=== PATIENT | female | born 1965 | race Caucasian/White ===

== ENCOUNTER 2016-12-29 12:47 | Emergency (ER) | payer SELFPAY ==
[~2016-12-29] VITALS: Ht 162.6 cm; Wt 66.7 kg
[2016-12-29 13:59] LABS: Basophils # (auto) 0 uL; Basophils % (auto) 0.5 % (0.0-2.0); CONDITION Y; Eosinophils # (auto) 0.3 uL; Eosinophils % (auto) 4.7 % (0.0-7.0); Hematocrit 44.9 % (36.0-46.0); Hemoglobin 14.5 g/dL (12.2-16.2); Lymphocytes % (auto) 27.5 % (10.0-50.0); Mean Corpuscular Hemoglobin 27.5 pg (28.0-32.0); Mean Corpuscular Hgb Conc. 32.3 g/dL (32.0-36.0); Mean Corpuscular Volume 84.9 fL (80.0-100.0); Mean Platelet Volume 9.8 fL (7.4-10.4); Monocytes # (auto) 0.4 uL; Monocytes % (auto) 5.6 % (0.0-12.0); Neutrophils # (auto) 4.5 uL; Neutrophils % (auto) 61.7 % (37.0-80.0); Platelet Count (auto) 238 10^3/uL (140-450); Red Cell Distribution Width 14.7 % (11.6-16.0); White Blood Cell 7.3 10^3/uL (4.4-10.8)
[2016-12-29 14:16] LABS: Albumin 3.9 g/dL (3.4-5.0); Anion Gap 9 (5-15); Blood Urea Nitrogen 16 mg/dL (7-18); Calcium 8.9 mg/dL (8.5-10.1); Carbon Dioxide 24 mmol/L (21-32); Chloride 110 mmol/L (98-107); Potassium 3.7 mmol/L (3.5-5.1); Sodium 143 mmol/L (136-145)
[2016-12-29 14:22] LABS: Alkaline Phosphatase 64 U/L (45-117); Aspartate Aminotransferase 13 U/L (15-37); BUN/Creatinine Ratio 27.6; Bilirubin, Total 0.3 mg/dL (0.2-1.0); GFR African American 142 mL/min; GFR Non-African American 117 mL/min; Glucose 103 mg/dL (74-106); Total Protein 7.5 g/dL (6.4-8.2)
[2016-12-29] MEDS ORDERED: SODIUM CHLORIDE 0.9% 1,000 ML IV ONE (16:14)
[2016-12-29] MEDS ORDERED: METOCLOPRAMIDE HCL 5MG/ml INJ 2ml VIAL IV ONE (16:15)
[2016-12-29] MEDS ORDERED: KETOROLAC TROMETH 30 MG/ML 1ML VIAL IV ONE (16:15)
[2016-12-29 16:43] LABS: Magnesium 2.4 mg/dL (1.6-2.6)
[2016-12-29 17:40] VITALS: BP 129/90
[2016-12-29 17:51] LABS: Urine Bilirubin Negative (Negative); Urine Blood Negative /uL (Negative); Urine Color Yellow (Yellow); Urine Glucose Normal (Normal); Urine Ketone Negative (Negative); Urine Nitrite Negative (Negative); Urine RBC 1 /hpf (0 - 4); Urine Squamous Epithelial Cell FEW /hpf (<5); Urine Urobilinogen Normal (Negative); Urine pH 6.5 (5.0-8.0)
== END 2016-12-29 18:18 | disposition home or self-care (01) ==
LOC: ER 12:47
DX: R10.11 Right upper quadrant pain (principal); R11.0 Nausea; E78.5 Hyperlipidemia, unspecified; G43.909 Migraine, unspecified, not intractable, without status migrainosus; K59.00 Constipation, unspecified; Z88.1 Allergy status to other antibiotic agents; Z90.710 Acquired absence of both cervix and uterus
CPT/HCPCS: 36415; 71020; 76705; 80053; 81001; 83690; 83735; 84443; 84484; 85025; 93005; 96361; 96374; 96375; 99285; J1885; J2765; J7030

== ENCOUNTER 2018-02-06 12:28 | Emergency (ER) | payer MEDICAID ==
[~2018-02-06] VITALS: Ht 152.4 cm; Wt 63.5 kg
[2018-02-06 13:10] VITALS: BP 142/88
[2018-02-06] MEDS ORDERED: ASPirin 81 mg TAB PO ONE (13:15)
[2018-02-06 13:45] LABS: Basophils # (auto) 0 uL; Basophils % (auto) 0.4 % (0.0-2.0); Eosinophils # (auto) 0.1 uL; Eosinophils % (auto) 1.9 % (0.0-7.0); Hematocrit 39.6 % (36.0-46.0); Lymphocytes # (auto) 1.9 uL; Lymphocytes % (auto) 26.1 % (10.0-50.0); Mean Corpuscular Hemoglobin 27.5 pg (28.0-32.0); Mean Corpuscular Hgb Conc. 32.8 g/dL (32.0-36.0); Mean Corpuscular Volume 83.8 fL (80.0-100.0); Monocytes # (auto) 0.4 uL; Monocytes % (auto) 5.5 % (0.0-12.0); Neutrophils # (auto) 4.8 uL; Neutrophils % (auto) 66.1 % (37.0-80.0); Nucleated Red Blood Cells % 0.2 %; Platelet Count (auto) 234 10^3/uL (140-450); Red Blood Cells 4.73 10^6/uL (4.0-5.20); Red Cell Distribution Width 14.3 % (11.8-14.3); White Blood Cell 7.3 10^3/uL (4.4-10.8)
[2018-02-06 13:57] LABS: Albumin 3.6 g/dL (3.4-5.0); Anion Gap 7 (5-15); Blood Urea Nitrogen 20 mg/dL (7-18); Carbon Dioxide 26 mmol/L (21-32); Chloride 108 mmol/L (98-107); GFR African American 116 mL/min; GFR Non-African American 96 mL/min; Glucose 95 mg/dL (74-106); Magnesium 2.2 mg/dL (1.6-2.6); Potassium 3.5 mmol/L (3.5-5.1); Sodium 141 mmol/L (136-145)
[2018-02-06 14:08] LABS: Alanine Aminotransferase 20 U/L (13-56); Alkaline Phosphatase 64 U/L (45-117); Aspartate Aminotransferase 14 U/L (15-37); Bilirubin, Total 0.4 mg/dL (0.2-1.0); Total Protein 7.1 g/dL (6.4-8.2)
== END 2018-02-06 14:54 | disposition home or self-care (01) ==
LOC: ER 12:28
DX: R07.89 Other chest pain (principal); E11.9 Type 2 diabetes mellitus without complications; E78.5 Hyperlipidemia, unspecified; Z88.2 Allergy status to sulfonamides
CPT/HCPCS: 36415; 71045; 80053; 83735; 84484; 85025; 85379; 93005; 94761

== ENCOUNTER 2022-02-28 22:02 | Inpatient (IN) | payer MEDICAID ==
[~2022-02-28] VITALS: Ht 160 cm; Wt 66.3 kg
[2022-03-01 00:07] LABS: INR 0.99 (0.9-1.15)
[2022-03-01 00:17] LABS: BUN/Creatinine Ratio 21.9; Potassium 3.1 mmol/L (3.5-5.1)
[2022-03-01 00:21] LABS: Bilirubin, Total 0.3 mg/dL (0.2-1.0); Total Protein 7.3 g/dL (6.4-8.2)
[2022-03-01 01:11] LABS: Basophils # (auto) 0 10 ^3/uL (0-0.2); Basophils % (auto) 0.5 % (0.0-2.0); Eosinophils # (auto) 0.2 10 ^3/uL (0-0.8); Eosinophils % (auto) 2.9 % (0.0-7.0); Hemoglobin 13.1 g/dL (12.2-16.2); Lymphocytes # (auto) 2.4 10 ^3/uL (0.4-5.4); Mean Corpuscular Hgb Conc. 32.7 g/dL (32.0-36.0); Mean Corpuscular Volume 82.5 fL (80.0-100.0); Monocytes # (auto) 0.5 10 ^3/uL (0-1.3); Monocytes % (auto) 6.5 % (0.0-12.0); Neutrophils # (auto) 3.8 10 ^3/uL (1.6-8.6); Neutrophils % (auto) 55.1 % (37.0-80.0); Red Blood Cells 4.85 10^6/uL (4.0-5.20); Red Cell Distribution Width 14.7 % (11.8-14.3); White Blood Cell 6.9 10^3/uL (4.4-10.8)
[2022-03-01] MEDS ORDERED: ONDA-144 PO (04:22)
[2022-03-01] MEDS ORDERED: FAMO20TA10 PO (04:22)
[2022-03-01] MEDS ORDERED: PERCOT PO (04:22)
[2022-03-01] MEDS ORDERED: FAMOTIDINE 20 MG TAB PO ONE (04:30)
[2022-03-01] MEDS ORDERED: CIPROFLOXACIN HCL 500 MG TAB PO ONE (04:30)
[2022-03-01] MEDS: amLODIPine BESYLATE 5 MG TAB PO SCH (10:00)
[2022-03-01] MEDS: SODIUM CHLORIDE 0.9% 1,000 ML IV SCH ×2 (11:00→19:30)
[2022-03-01] MEDS ORDERED: POTASSIUM CHL 20 Meq TABLET PO ONE (11:00)
[2022-03-01 16:17] LABS: Magnesium 2.3 mg/dL (1.6-2.6); Phosphorus 3.4 mg/dL (2.5-4.90)
[2022-03-01] MEDS: MORPHINE SULFATE INJ 2 MG/ml SYRG IV PRN ×2 (17:53→22:09)
[2022-03-01] MEDS: ONDANSETRON HCL 4 MG/2 ML VIAL IV PRN ×2 (18:02→22:09)
[2022-03-01 21:33] LABS: Urine Bacteria FEW /hpf (None Seen); Urine Blood Negative /uL (Negative); Urine Mucus MODERATE (None Seen); Urine Specific Gravity 1.019 (1.001-1.035); Urine WBC 146 /hpf (0 - 5)
[2022-03-02] MEDS: SODIUM CHLORIDE 0.9% 1,000 ML IV SCH ×3 (03:40→13:25)
[2022-03-02 04:39] LABS: Basophils # (auto) 0 10 ^3/uL (0-0.2); Basophils % (auto) 0.5 % (0.0-2.0); Eosinophils # (auto) 0.3 10 ^3/uL (0-0.8); Eosinophils % (auto) 4.6 % (0.0-7.0); Hematocrit 38.7 % (36.0-46.0); Hemoglobin 12.9 g/dL (12.2-16.2); Lymphocytes # (auto) 2.2 10 ^3/uL (0.4-5.4); Lymphocytes % (auto) 33.6 % (10.0-50.0); Mean Corpuscular Hemoglobin 27.2 pg (28.0-32.0); Mean Corpuscular Hgb Conc. 33.2 g/dL (32.0-36.0); Mean Corpuscular Volume 81.7 fL (80.0-100.0); Monocytes # (auto) 0.4 10 ^3/uL (0-1.3); Monocytes % (auto) 6.5 % (0.0-12.0); Neutrophils # (auto) 3.5 10 ^3/uL (1.6-8.6); Neutrophils % (auto) 54.8 % (37.0-80.0); Red Blood Cells 4.73 10^6/uL (4.0-5.20); Red Cell Distribution Width 14.9 % (11.8-14.3); White Blood Cell 6.5 10^3/uL (4.4-10.8)
[2022-03-02 05:05] LABS: Potassium 3.3 mmol/L (3.5-5.1)
[2022-03-02 05:11] LABS: Albumin 3.6 g/dL (3.4-5.0); BUN/Creatinine Ratio 27.5; Bilirubin, Total 0.4 mg/dL (0.2-1.0); Calcium 8.7 mg/dL (8.5-10.1); Total Protein 6.6 g/dL (6.4-8.2)
[2022-03-02] MEDS: MORPHINE SULFATE INJ 2 MG/ml SYRG IV PRN ×2 (06:47→09:44)
[2022-03-02] MEDS: ONDANSETRON HCL 4 MG/2 ML VIAL IV PRN ×3 (06:47→21:00)
[2022-03-02] MEDS: amLODIPine BESYLATE 5 MG TAB PO SCH (09:44)
[2022-03-02] MEDS: PANTOPRAZOLE 40 MG/10 ML VIAL INJ IV SCH (09:44)
[2022-03-02] MEDS ORDERED: POTASSIUM CHL 20 Meq TABLET PO ONE (12:45)
[2022-03-02 13:00] VITALS: BP 160/88
[2022-03-02] MEDS ORDERED: POLYETHYLENE GLYCOL 17 GM PWDR PO ONE (13:45)
[2022-03-02] MEDS ORDERED: SUCR1TAB PO (14:50)
[2022-03-02] MEDS ORDERED: DICL1GEL50 TOP (14:50)
[2022-03-02] MEDS ORDERED: [UNRECOGNIZED DRUG - CODE] (14:50)
[2022-03-02] MEDS ORDERED: TOPI50TA53 PO (14:50)
[2022-03-02] MEDS ORDERED: HYDR1SOL36 (14:50)
[2022-03-02] MEDS ORDERED: LIDO1.8P TOP (14:50)
[2022-03-02] MEDS ORDERED: PANT40T PO (14:50)
[2022-03-02] MEDS ORDERED: ATOR40TA52 PO (14:50)
[2022-03-02] MEDS ORDERED: CITA-77 PO (14:50)
[2022-03-02] MEDS ORDERED: SUMA100T15 PO (14:50)
[2022-03-02 17:00] VITALS: BP 157/102
[2022-03-02] MEDS ORDERED: cefTRIAXone 1GM/50ML D5W 50 ML IV ONE (17:30)
[2022-03-02 20:00] VITALS: BP 165/97
[2022-03-02 22:00] VITALS: BP 143/87
[2022-03-03] MEDS: SODIUM CHLORIDE 0.9% 1,000 ML IV SCH ×3 (04:40→21:20)
[2022-03-03 05:00] VITALS: BP 154/96
[2022-03-03 09:00] VITALS: BP 151/96
[2022-03-03] MEDS: cefTRIAXone 1GM/50ML D5W 50 ML IV SCH (09:05)
[2022-03-03] MEDS: PANTOPRAZOLE 40 MG/10 ML VIAL INJ IV SCH (09:05)
[2022-03-03] MEDS: amLODIPine BESYLATE 5 MG TAB PO SCH (09:06)
[2022-03-03] MEDS: HYDROcodone-ACET 5/325MG TAB PO PRN ×2 (11:47→18:54)
[2022-03-03 13:00] VITALS: BP 153/95
[2022-03-03] MEDS: ONDANSETRON HCL 4 MG/2 ML VIAL IV PRN (13:52)
[2022-03-03] MEDS ORDERED: PHYSOSTIGMINE 1 MG/ML IV ONE (14:30)
[2022-03-03 16:47] VITALS: BP 148/93
[2022-03-03] MEDS: POLYETHYLENE GLYCOL 17 GM PWDR PO PRN (20:55)
[2022-03-03 22:00] VITALS: BP 160/80
[2022-03-03 23:45] VITALS: BP 153/86
[2022-03-04 02:56] LABS: INR 1.03 (0.9-1.15); Partial Thromboplastin Time 24.8 sec (24.6-33.4)
[2022-03-04 05:00] VITALS: BP 160/81
[2022-03-04] MEDS: SODIUM CHLORIDE 0.9% 1,000 ML IV SCH ×3 (06:37→21:00)
[2022-03-04] MEDS: cefTRIAXone 1GM/50ML D5W 50 ML IV SCH (08:51)
[2022-03-04] MEDS: amLODIPine BESYLATE 5 MG TAB PO SCH (08:52)
[2022-03-04] MEDS: PANTOPRAZOLE 40 MG/10 ML VIAL INJ IV SCH (08:52)
[2022-03-04 09:00] VITALS: BP 136/92
[2022-03-04] MEDS: HYDROcodone-ACET 5/325MG TAB PO PRN ×2 (09:08→19:55)
[2022-03-04 13:00] VITALS: BP 140/90
[2022-03-04 17:00] VITALS: BP 123/90
[2022-03-04] MEDS: ONDANSETRON HCL 4 MG/2 ML VIAL IV PRN (18:46)
[2022-03-04 21:46] VITALS: BP 146/88
[2022-03-04] MEDS ORDERED: METOCLOPRAMIDE HCL 10 MG TAB PO SCH (22:00)
[2022-03-04] MEDS ORDERED: VALPROATE INJ 1,000 MG in D5W 5% 50 ML IV SCH (22:00)
[2022-03-05] MEDS: ONDANSETRON HCL 4 MG/2 ML VIAL IV PRN (00:06)
[2022-03-05] MEDS: HYDROcodone-ACET 5/325MG TAB PO PRN ×4 (00:06→21:50)
[2022-03-05 04:30] VITALS: BP 149/96
[2022-03-05] MEDS: SODIUM CHLORIDE 0.9% 1,000 ML IV SCH ×2 (06:38→13:00)
[2022-03-05] MEDS ORDERED: LIDOCAINE VISCOUS 2% 15ML UD ONE (07:13)
[2022-03-05] MEDS ORDERED: SODIUM CHLORIDE LOCK 10 ML ONE (07:13)
[2022-03-05 08:00] VITALS: BP 131/86
[2022-03-05] MEDS: POLYETHYLENE GLYCOL 17 GM PWDR PO PRN (08:12)
[2022-03-05] MEDS: cefTRIAXone 1GM/50ML D5W 50 ML IV SCH (08:12)
[2022-03-05] MEDS ORDERED: PANTOPRAZOLE 40 MG TAB PO SCH (10:00)
[2022-03-05] MEDS: MIDAZOLAM HCL 5 MG/ML-1ML VIAL ONE ×2 (10:12→10:15)
[2022-03-05] MEDS: diphenhdrAMINE HCL 50 MG/1 ML VL ONE ×2 (10:12→10:13)
[2022-03-05] MEDS: fentaNYL CITRATE 100 MCG/2 ML VL ONE ×2 (10:12→10:15)
[2022-03-05] MEDS: amLODIPine BESYLATE 5 MG TAB PO SCH (11:06)
[2022-03-05] MEDS: SUCRALFATE 1 GM/10 ML ORAL SUSP PO SCH ×3 (11:06→21:50)
[2022-03-05 12:00] VITALS: BP 149/94
[2022-03-05 16:00] VITALS: BP 140/87
[2022-03-05 22:00] VITALS: BP 150/91
[2022-03-06] MEDS: METOCLOPRAMIDE HCL 10 MG TAB PO SCH ×2 (00:01→06:54)
[2022-03-06] MEDS: SODIUM CHLORIDE 0.9% 1,000 ML IV SCH ×2 (00:01→04:07)
[2022-03-06 05:00] VITALS: BP 117/82
[2022-03-06] MEDS: SUCRALFATE 1 GM/10 ML ORAL SUSP PO SCH ×2 (06:54→10:58)
[2022-03-06] MEDS: HYDROcodone-ACET 5/325MG TAB PO PRN (06:54)
[2022-03-06] MEDS: PANTOPRAZOLE 40 MG/10 ML VIAL INJ IV SCH ×2 (08:31)
[2022-03-06] MEDS: cefTRIAXone 1GM/50ML D5W 50 ML IV SCH (08:31)
[2022-03-06] MEDS: amLODIPine BESYLATE 5 MG TAB PO SCH (08:34)
[2022-03-06 09:00] VITALS: BP 133/89
[2022-03-06] MEDS ORDERED: QULIPTA 60 MG PO SCH (10:00)
[2022-03-06] MEDS ORDERED: SUCR1TAB PO (10:41)
[2022-03-06] MEDS ORDERED: AML5T PO (10:42)
[2022-03-06] MEDS ORDERED: PANT40TA2 PO (10:42)
[2022-03-06 11:50] VITALS: BP 117/82
== END 2022-03-06 12:59 | disposition home or self-care (01) | DRG 241 ==
LOC: ER 22:02 → EDBD 22:02 → OVERFLOW 03-01 10:51 → CENTRAL 03-02 13:03
PROVIDERS: ADMIT Nurse Practitioner Family; ATTEND Internal Medicine
PROC: 0DB68ZX Excision of Stomach, Via Natural or Artificial Opening Endoscopic, Diagnostic (ICD-10-PCS; principal; 2022-03-05 10:05)
DX: K29.70 Gastritis, unspecified, without bleeding (principal); K26.9 Duodenal ulcer, unspecified as acute or chronic, without hemorrhage or perforation; E11.51 Type 2 diabetes mellitus with diabetic peripheral angiopathy without gangrene; K29.80 Duodenitis without bleeding; K25.9 Gastric ulcer, unspecified as acute or chronic, without hemorrhage or perforation; E86.0 Dehydration; E87.6 Hypokalemia; N20.0 Calculus of kidney; N39.0 Urinary tract infection, site not specified; I10 Essential (primary) hypertension; L98.499 Non-pressure chronic ulcer of skin of other sites with unspecified severity; M54.50 Low back pain, unspecified; E78.5 Hyperlipidemia, unspecified; G43.019 Migraine without aura, intractable, without status migrainosus; M79.2 Neuralgia and neuritis, unspecified; G44.40 Drug-induced headache, not elsewhere classified, not intractable; G89.4 Chronic pain syndrome; K44.9 Diaphragmatic hernia without obstruction or gangrene; Z20.822 Contact with and (suspected) exposure to COVID-19; Z79.899 Other long term (current) drug therapy; Z82.49 Family history of ischemic heart disease and other diseases of the circulatory system; Z88.2 Allergy status to sulfonamides; Z83.3 Family history of diabetes mellitus; Z90.710 Acquired absence of both cervix and uterus; Z98.82 Breast implant status; Z98.891 History of uterine scar from previous surgery; Z87.11 Personal history of peptic ulcer disease
CPT/HCPCS: 36415; 43239; 71045; 74176; 80053; 81001; 83735; 84100; 84484; 85025; 85610; 85730; 86677; 86850; 86900; 86901; 87426; 93005; 96365; 96375; C9113; G0378; J0696; J2250; J2405

== ENCOUNTER 2022-08-15 20:00 | Inpatient (IN) | payer MEDICAID ==
[~2022-08-15] VITALS: Ht 160 cm; Wt 69.8 kg
[~2022-08-15 20:00] MED LIST: AML5T PO; ATOR40TA52 PO; CITA-77 PO; DICL1GEL50 TOP; FAMO20TA10 PO; HYDR1SOL36; LIDO1.8P TOP; ONDA-144 PO; PANT40TA2 PO; SUCR1TAB PO; SUMA100T15 PO; TOPI50TA53 PO
[2022-08-15] MEDS ORDERED: KETOROLAC TROMETH 30 MG/ML 1ML VIAL IV ONE (20:30)
[2022-08-15] MEDS ORDERED: SODIUM CHLORIDE 0.9% 1,000 ML IVB ONE (20:30)
[2022-08-15] MEDS ORDERED: ONDANSETRON HCL 4 MG/2 ML VIAL IV ONE (20:30)
[2022-08-15 21:10] LABS: Urine Amorphous Crystal FEW /hpf (None Seen); Urine Bacteria FEW /hpf (None Seen); Urine Blood Negative /uL (Negative); Urine Specific Gravity 1.011 (1.001-1.035); Urine WBC 4 /hpf (0 - 5)
[2022-08-15 21:36] LABS: Mean Corpuscular Hemoglobin 25.4 pg (28.0-32.0); Monocytes # (auto) 1.2 10 ^3/uL (0-1.3); White Blood Cell 12.7 10^3/uL (4.4-10.8)
[2022-08-15 21:38] LABS: Basophils # (auto) 0 10 ^3/uL (0-0.2); Basophils % (auto) 0.3 % (0.0-2.0); Eosinophils # (auto) 0 10 ^3/uL (0-0.8); Eosinophils % (auto) 0.3 % (0.0-7.0); Hematocrit 37.8 % (36.0-46.0); Lymphocytes # (auto) 1.7 10 ^3/uL (0.4-5.4); Lymphocytes % (auto) 13.4 % (10.0-50.0); Mean Corpuscular Hgb Conc. 31.8 g/dL (32.0-36.0); Mean Corpuscular Volume 79.9 fL (80.0-100.0); Monocytes % (auto) 9.7 % (0.0-12.0); Neutrophils # (auto) 9.7 10 ^3/uL (1.6-8.6); Neutrophils % (auto) 76.3 % (37.0-80.0); Nucleated Red Blood Cells % 0.1 %; Red Blood Cells 4.73 10^6/uL (4.0-5.20); Red Cell Distribution Width 16.1 % (11.8-14.3)
[2022-08-15 21:59] LABS: Albumin 3.8 g/dL (3.4-5.0); Calcium 8.6 mg/dL (8.5-10.1); Potassium 3.1 mmol/L (3.5-5.1)
[2022-08-15 22:03] LABS: BUN/Creatinine Ratio 27.5 (10.0-20.0); Bilirubin, Total 0.2 mg/dL (0.2-1.0); Total Protein 6.9 g/dL (6.4-8.2)
[2022-08-16] MEDS ORDERED: KETOROLAC TROMETH 30 MG/ML 1ML VIAL IV ONE ×2 (04:45→11:30)
[2022-08-16] MEDS ORDERED: SUCR1TAB22 OR (10:18)
[2022-08-16] MEDS ORDERED: CITA10TA8 PO (10:18)
[2022-08-16] MEDS ORDERED: CLOP75TA70 PO (10:18)
[2022-08-16] MEDS ORDERED: SUMA50TA2 PO (10:19)
[2022-08-16] MEDS ORDERED: MORPHINE SULFATE INJ 2 MG/ml SYRG IV PRN (11:45)
[2022-08-16] MEDS ORDERED: POTASSIUM EFFERVESENT TAB 25 MEQ PO ONE (11:45)
[2022-08-16] MEDS: SODIUM CHLORIDE 0.9% 1,000 ML IV SCH ×2 (15:33→21:35)
[2022-08-16] MEDS: SUCRALFATE 1 GM TAB PO SCH ×2 (17:28→21:35)
[2022-08-16] MEDS ORDERED: HYDROcodone-ACET 5/325MG TAB PO ONE (17:30)
[2022-08-16] MEDS ORDERED: MANNITOL 20% SOLN 100 gm/500ml 100 ML IV ONE (17:30)
[2022-08-16] MEDS ORDERED: SODIUM CHLORIDE 0.9% 1,000 ML IV ONE (17:45)
[2022-08-16] MEDS: PANTOPRAZOLE 40 MG TAB PO SCH (21:35)
[2022-08-16] MEDS: TAMSULOSIN HYDROCHLORIDE 0.4 MG CAP PO SCH (21:36)
[2022-08-16 23:48] VITALS: BP 152/85
[2022-08-17] VITALS (7 sets, daily range): BP systolic 110–156; BP diastolic 70–91
[2022-08-17] MEDS: ONDANSETRON HCL 4 MG/2 ML VIAL IV PRN ×3 (00:36→18:43)
[2022-08-17] MEDS: SODIUM CHLORIDE 0.9% 1,000 ML IV SCH ×3 (04:25→12:48)
[2022-08-17] MEDS: SUCRALFATE 1 GM TAB PO SCH ×4 (05:56→22:33)
[2022-08-17 06:07] LABS: Basophils # (auto) 0 10 ^3/uL (0-0.2); Eosinophils # (auto) 0.2 10 ^3/uL (0-0.8); Neutrophils # (auto) 5.7 10 ^3/uL (1.6-8.6); Red Cell Distribution Width 16.4 % (11.8-14.3)
[2022-08-17 06:09] LABS: Basophils % (auto) 0.5 % (0.0-2.0); Eosinophils % (auto) 2.6 % (0.0-7.0); Hematocrit 34.6 % (36.0-46.0); Hemoglobin 11.3 g/dL (12.2-16.2); Lymphocytes # (auto) 1.5 10 ^3/uL (0.4-5.4); Lymphocytes % (auto) 18.8 % (10.0-50.0); Mean Corpuscular Hemoglobin 26.1 pg (28.0-32.0); Mean Corpuscular Hgb Conc. 32.8 g/dL (32.0-36.0); Mean Corpuscular Volume 79.8 fL (80.0-100.0); Monocytes # (auto) 0.7 10 ^3/uL (0-1.3); Monocytes % (auto) 8.3 % (0.0-12.0); Neutrophils % (auto) 69.8 % (37.0-80.0); Nucleated Red Blood Cells % 0.1 %; Red Blood Cells 4.33 10^6/uL (4.0-5.20); White Blood Cell 8.2 10^3/uL (4.4-10.8)
[2022-08-17 06:15] LABS: Albumin 3.2 g/dL (3.4-5.0); Potassium 3.8 mmol/L (3.5-5.1)
[2022-08-17 06:19] LABS: BUN/Creatinine Ratio 22.4 (10.0-20.0); Bilirubin, Total 0.4 mg/dL (0.2-1.0); Calcium 8.7 mg/dL (8.5-10.1); Total Protein 6.2 g/dL (6.4-8.2)
[2022-08-17] MEDS: cefTRIAXone 1GM/50ML D5W 50 ML IV SCH (09:01)
[2022-08-17] MEDS ORDERED: ENOXAPARIN SOD 40 MG/0.4 ML SYRINGE SC SCH (10:00)
[2022-08-17] MEDS ORDERED: CLOPIDOGREL BISULFATE 75 MG TAB PO SCH (10:00)
[2022-08-17] MEDS ORDERED: PATIENTS OWN MEDICATION (Citalopram Hydrobromide (Celexa) 20 MG) PO SCH (10:00)
[2022-08-17] MEDS: CITALOPRAM HYDROBR 20 MG TAB PO SCH (11:41)
[2022-08-17] MEDS: amLODIPine BESYLATE 5 MG TAB PO SCH (11:44)
[2022-08-17] MEDS: ATORVASTATIN 20 MG TAB PO SCH (11:45)
[2022-08-17] MEDS: PANTOPRAZOLE 40 MG TAB PO SCH ×2 (11:46→22:34)
[2022-08-17] MEDS ORDERED: KETOROLAC TROMETH 30 MG/ML 1ML VIAL IV PRN (12:45)
[2022-08-17] MEDS: DOCUSATE SOD 100 MG CAP PO PRN ×2 (16:18→22:35)
[2022-08-17] MEDS: TAMSULOSIN HYDROCHLORIDE 0.4 MG CAP PO SCH (17:43)
[2022-08-17] MEDS ORDERED: SUMAtriptan SUCCINATE 25 MG TAB PO PRN (23:00)
[2022-08-18] VITALS (7 sets, daily range): BP systolic 135–151; BP diastolic 83–90
[2022-08-18] MEDS: SUCRALFATE 1 GM TAB PO SCH ×4 (06:41→21:28)
[2022-08-18] MEDS: SODIUM CHLORIDE 0.9% 1,000 ML IV SCH ×3 (06:41→22:05)
[2022-08-18] MEDS: cefTRIAXone 1GM/50ML D5W 50 ML IV SCH (08:31)
[2022-08-18] MEDS: CITALOPRAM HYDROBR 20 MG TAB PO SCH (09:54)
[2022-08-18] MEDS: ONDANSETRON HCL 4 MG/2 ML VIAL IV PRN ×3 (09:54→21:36)
[2022-08-18] MEDS: PANTOPRAZOLE 40 MG TAB PO SCH ×2 (09:55→21:28)
[2022-08-18] MEDS: amLODIPine BESYLATE 5 MG TAB PO SCH (09:56)
[2022-08-18] MEDS: ATORVASTATIN 20 MG TAB PO SCH (09:56)
[2022-08-18] MEDS: DOCUSATE SOD 100 MG CAP PO PRN (10:00)
[2022-08-18] MEDS ORDERED: SUMAtriptan SUCCINATE 25 MG TAB PO PRN (10:00)
[2022-08-18] MEDS: TAMSULOSIN HYDROCHLORIDE 0.4 MG CAP PO SCH (17:45)
[2022-08-19 05:00] VITALS: BP 141/91
[2022-08-19] MEDS: SUCRALFATE 1 GM TAB PO SCH ×2 (05:51→12:26)
[2022-08-19] MEDS: SODIUM CHLORIDE 0.9% 1,000 ML IV SCH ×2 (06:25→14:38)
[2022-08-19 09:12] VITALS: BP 151/84
[2022-08-19] MEDS: cefTRIAXone 1GM/50ML D5W 50 ML IV SCH (09:51)
[2022-08-19] MEDS: CITALOPRAM HYDROBR 20 MG TAB PO SCH (09:55)
[2022-08-19] MEDS: PANTOPRAZOLE 40 MG TAB PO SCH (09:55)
[2022-08-19] MEDS: amLODIPine BESYLATE 5 MG TAB PO SCH (09:55)
[2022-08-19] MEDS: ATORVASTATIN 20 MG TAB PO SCH (09:55)
[2022-08-19] MEDS ORDERED: LEVO500T31 PO (11:55)
[2022-08-19] MEDS ORDERED: DOCU-94 PO (12:08)
[2022-08-19 12:32] VITALS: BP 143/84
[2022-08-19 14:02] VITALS: BP 151/84
== END 2022-08-19 15:55 | disposition home or self-care (01) | DRG 720 ==
LOC: EDBD 20:00 → ER 20:00 → OVERFLOW 08-16 11:44 → WEST WING 08-16 23:09
PROVIDERS: ADMIT Nurse Practitioner Family; ATTEND Family Medicine
DX: A41.9 Sepsis, unspecified organism (principal); N17.9 Acute kidney failure, unspecified; R16.0 Hepatomegaly, not elsewhere classified; N13.6 Pyonephrosis; D64.9 Anemia, unspecified; E86.0 Dehydration; I10 Essential (primary) hypertension; F32.A Depression, unspecified; E87.6 Hypokalemia; E78.00 Pure hypercholesterolemia, unspecified; Z79.02 Long term (current) use of antithrombotics/antiplatelets; Z82.49 Family history of ischemic heart disease and other diseases of the circulatory system; Z83.3 Family history of diabetes mellitus; Z79.899 Other long term (current) drug therapy; Z87.442 Personal history of urinary calculi; Z87.11 Personal history of peptic ulcer disease; Z88.2 Allergy status to sulfonamides; N10 Acute pyelonephritis
CPT/HCPCS: 36415; 74018; 74176; 76775; 80053; 81001; 83605; 83690; 85025; 87086; 93005; G0378; J0696; J1885; J2405

== ENCOUNTER 2023-09-27 00:52 | Inpatient (IN) | payer MEDICAID ==
[2023-09-27] VITALS (8 sets, daily range): BP systolic 117–140; BP diastolic 72–82; PULSE 69–81; RESP 16–19; TEMP 98.2–98.5; O2SAT 95–100
[~2023-09-27] VITALS: Ht 160 cm; Wt 69.5 kg
[~2023-09-27 00:52] MED LIST changes: +CITA10TA8 PO; +CLOP75TA70 PO; -DICL1GEL50 TOP; +DOCU-94 PO; +LEVO500T31 PO; -LIDO1.8P TOP; +SUCR1TAB31 OR; +SUMA50TA2 PO
[2023-09-27 01:27] LABS: Urine Bacteria None Seen /hpf (None Seen)
[2023-09-27 01:31] LABS: Basophils # (auto) 0 10 ^3/uL (0-0.2); Eosinophils # (auto) 0.1 10 ^3/uL (0-0.8); Hemoglobin 11.2 g/dL (12.2-16.2); Lymphocytes # (auto) 1.4 10 ^3/uL (0.4-5.4); Mean Corpuscular Hgb Conc. 32.5 g/dL (32.0-36.0); Monocytes # (auto) 0.6 10 ^3/uL (0-1.3); White Blood Cell 4.1 10^3/uL (4.4-10.8)
[2023-09-27 01:32] LABS: Basophils % (auto) 0.5 % (0.0-2.0); Eosinophils % (auto) 2.2 % (0.0-7.0); Hematocrit 34.5 % (36.0-46.0); Lymphocytes % (auto) 32.9 % (10.0-50.0); Mean Corpuscular Hemoglobin 24.9 pg (28.0-32.0); Mean Corpuscular Volume 76.5 fL (80.0-100.0); Monocytes % (auto) 14.8 % (0.0-12.0); Neutrophils % (auto) 49.6 % (37.0-80.0); Nucleated Red Blood Cells % 0.3 %; Red Blood Cells 4.52 10^6/uL (4.0-5.20)
[2023-09-27 01:35] LABS: Urine Blood 1+ /uL (Negative); Urine Clarity Clear (Clear); Urine Color Colorless (Yellow); Urine Protein, UAD Negative (Negative); Urine Specific Gravity 1.006 (1.001-1.035); Urine Urobilinogen Normal (Negative); Urine WBC 2 /hpf (0 - 5)
[2023-09-27 01:46] LABS: Alanine Aminotransferase 32 U/L (7-40); Albumin 4.4 g/dL (3.2-4.8); Alkaline Phosphatase 90 U/L (46-116); Anion Gap 7 (5-15); Aspartate Aminotransferase 25 U/L (13-40); BUN/Creatinine Ratio 12.7 (10.0-20.0); Bilirubin, Total 0.2 mg/dL (0.2-1.0); Blood Urea Nitrogen 7 mg/dL (9-23); Calcium 9.7 mg/dL (8.7-10.4); Carbon Dioxide 27 mmol/L (20-30); Chloride 107 mmol/L (98-107); Glucose 111 mg/dL (74-106); Lipase 246 U/L (12-53); Sodium 141 mmol/L (136-145); Total Protein 7.1 g/dL (5.7-8.2)
[2023-09-27] MEDS ORDERED: POTASSIUM CHLORIDE 60 MEQ, LIDOCAINE 1% (LOCAL ANESTH.) 6 ML in SODIUM CHL 0.9% 500 ML IV ONE (02:00)
[2023-09-27] MEDS ORDERED: hydrALAZINE HCL 20 MG/ML VL IV PRN (03:15)
[2023-09-27] MEDS ORDERED: DOCUSATE SOD 100 MG CAP PO PRN (03:15)
[2023-09-27] MEDS ORDERED: ACETAMINOPHEN 325 MG TAB PO PRN (03:15)
[2023-09-27 04:30] LABS: Basophils # (auto) 0 10 ^3/uL (0-0.2); Eosinophils # (auto) 0.1 10 ^3/uL (0-0.8); Nucleated Red Blood Cells % 0.1 %
[2023-09-27 04:34] LABS: Basophils % (auto) 0.7 % (0.0-2.0); Hemoglobin 10.9 g/dL (12.2-16.2); Lymphocytes # (auto) 1.1 10 ^3/uL (0.4-5.4); Lymphocytes % (auto) 29.9 % (10.0-50.0); Mean Corpuscular Hgb Conc. 32.2 g/dL (32.0-36.0); Mean Corpuscular Volume 77.8 fL (80.0-100.0); Monocytes # (auto) 0.6 10 ^3/uL (0-1.3); Monocytes % (auto) 15.3 % (0.0-12.0); Neutrophils % (auto) 52.1 % (37.0-80.0); Red Blood Cells 4.37 10^6/uL (4.0-5.20); Red Cell Distribution Width 17.4 % (11.8-14.3); White Blood Cell 3.8 10^3/uL (4.4-10.8)
[2023-09-27 04:45] LABS: Alanine Aminotransferase 31 U/L (7-40); Albumin 4.3 g/dL (3.2-4.8); Alkaline Phosphatase 89 U/L (46-116); Anion Gap 6 (5-15); Aspartate Aminotransferase 24 U/L (13-40); BUN/Creatinine Ratio 9.4 (10.0-20.0); Bilirubin, Total 0.2 mg/dL (0.2-1.0); Blood Urea Nitrogen 5 mg/dL (9-23); Calcium 9.5 mg/dL (8.5-10.1); Carbon Dioxide 26 mmol/L (20-30); Chloride 107 mmol/L (98-107); Glucose 109 mg/dL (74-106); Sodium 139 mmol/L (136-145); Total Protein 6.8 g/dL (5.7-8.2)
[2023-09-27] MEDS ORDERED: NITROGLYCERIN 0.4 MG SL TAB SL PRN (05:15)
[2023-09-27] MEDS: SODIUM CHLORIDE 0.9% 1,000 ML IV ONE (05:15)
[2023-09-27] MEDS ORDERED: MORPHINE SULFATE INJ 2 MG/ml SYRG IV PRN (05:15)
[2023-09-27] MEDS ORDERED: SUMA100T2 PO (06:15)
[2023-09-27] MEDS ORDERED: HYDR-4798 PO (06:15)
[2023-09-27] MEDS: POTASSIUM CHL 20 Meq TABLET PO ONE (06:54)
[2023-09-27] MEDS ORDERED: ASPITAB34 PO (08:25)
[2023-09-27] MEDS ORDERED: ATOG60TA PO (08:25)
[2023-09-27] MEDS ORDERED: PROP60CA34 PO (08:25)
[2023-09-27] MEDS ORDERED: MULT-1228 PO (08:25)
[2023-09-27] MEDS: FAMOTIDINE (10MG/ML) 2ML VL IV SCH (09:07)
[2023-09-27] MEDS: HYDROcodone-ACET 5/325MG TAB PO PRN (09:14)
[2023-09-27] MEDS: SODIUM CHLORIDE 0.9% 1,000 ML IV SCH (09:15)
[2023-09-27] MEDS: ONDANSETRON HCL 4 MG/2 ML VIAL IV PRN (18:13)
[2023-09-27] MEDS: MORPHINE SULFATE INJ 2 MG/ml SYRG IV PRN (18:15)
[2023-09-28] VITALS (8 sets, daily range): BP systolic 131–154; BP diastolic 75–91; PULSE 77–86; RESP 16–18; TEMP 98.1–98.7; O2SAT 96–98
[2023-09-28 05:51] LABS: Basophils # (auto) 0 10 ^3/uL (0-0.2); Basophils % (auto) 0.5 % (0.0-2.0); Hemoglobin 10.2 g/dL (12.2-16.2); Lymphocytes # (auto) 1.1 10 ^3/uL (0.4-5.4); Monocytes # (auto) 0.6 10 ^3/uL (0-1.3); Neutrophils # (auto) 2.7 10 ^3/uL (1.6-8.6); White Blood Cell 4.4 10^3/uL (4.4-10.8)
[2023-09-28 05:55] LABS: Eosinophils # (auto) 0.1 10 ^3/uL (0-0.8); Eosinophils % (auto) 1.2 % (0.0-7.0); Hematocrit 31.6 % (36.0-46.0); Lymphocytes % (auto) 25.3 % (10.0-50.0); Mean Corpuscular Hemoglobin 24.8 pg (28.0-32.0); Mean Corpuscular Hgb Conc. 32.4 g/dL (32.0-36.0); Mean Corpuscular Volume 76.5 fL (80.0-100.0); Monocytes % (auto) 12.6 % (0.0-12.0); Neutrophils % (auto) 60.4 % (37.0-80.0); Nucleated Red Blood Cells % 0.1 %; Red Blood Cells 4.13 10^6/uL (4.0-5.20); Red Cell Distribution Width 17.1 % (11.8-14.3)
[2023-09-28 06:02] LABS: Alanine Aminotransferase 26 U/L (7-40); Albumin 3.7 g/dL (3.2-4.8); Alkaline Phosphatase 84 U/L (46-116); Anion Gap 11 (5-15); Aspartate Aminotransferase 17 U/L (13-40); BUN/Creatinine Ratio 13.7 (10.0-20.0); Blood Urea Nitrogen 7 mg/dL (9-23); Carbon Dioxide 25 mmol/L (20-30); Chloride 108 mmol/L (98-107); Glucose 80 mg/dL (74-106); Potassium 2.9 mmol/L (3.5-5.1); Sodium 144 mmol/L (136-145)
[2023-09-28 06:03] LABS: Bilirubin, Total 0.2 mg/dL (0.2-1.0)
[2023-09-28] MEDS ORDERED: SUMAtriptan SUCCINATE 6 MG/0.5 ML VL SC ONE (11:00)
[2023-09-28] MEDS: SUMAtriptan SUCCINATE 25 MG TAB PO PRN (12:01)
[2023-09-28] MEDS: POTASSIUM CHL 20MEQ/100ML 100 ML IV SCH (12:02)
[2023-09-29] VITALS (7 sets, daily range): BP systolic 125–152; BP diastolic 67–86; PULSE 61–72; RESP 12–18; TEMP 98–98.4; O2SAT 95–99
[2023-09-29 06:09] LABS: Basophils # (auto) 0 10 ^3/uL (0-0.2); Basophils % (auto) 0.4 % (0.0-2.0); Eosinophils # (auto) 0.1 10 ^3/uL (0-0.8); Eosinophils % (auto) 0.9 % (0.0-7.0); Hematocrit 31.7 % (36.0-46.0); Hemoglobin 10.3 g/dL (12.2-16.2); Lymphocytes # (auto) 1.6 10 ^3/uL (0.4-5.4); Lymphocytes % (auto) 27.4 % (10.0-50.0); Mean Corpuscular Hemoglobin 25.1 pg (28.0-32.0); Mean Corpuscular Hgb Conc. 32.5 g/dL (32.0-36.0); Mean Corpuscular Volume 77.2 fL (80.0-100.0); Monocytes # (auto) 0.7 10 ^3/uL (0-1.3); Monocytes % (auto) 12.7 % (0.0-12.0); Neutrophils # (auto) 3.4 10 ^3/uL (1.6-8.6); Neutrophils % (auto) 58.6 % (37.0-80.0); Nucleated Red Blood Cells % 0.1 %; Red Blood Cells 4.11 10^6/uL (4.0-5.20); Red Cell Distribution Width 17.2 % (11.8-14.3); White Blood Cell 5.8 10^3/uL (4.4-10.8)
[2023-09-29 06:23] LABS: Alanine Aminotransferase 29 U/L (7-40); Albumin 3.8 g/dL (3.2-4.8); Alkaline Phosphatase 89 U/L (46-116); Anion Gap 6 (5-15); Aspartate Aminotransferase 25 U/L (13-40); Calcium 9.3 mg/dL (8.7-10.4); Carbon Dioxide 28 mmol/L (20-30); Chloride 107 mmol/L (98-107); Glucose 93 mg/dL (74-106); Lipase 71 U/L (12-53); Potassium 3.6 mmol/L (3.5-5.1); Sodium 141 mmol/L (136-145)
[2023-09-29 06:24] LABS: Bilirubin, Total 0.2 mg/dL (0.2-1.0); Total Protein 6.1 g/dL (5.7-8.2)
[2023-09-29 06:39] LABS: BUN/Creatinine Ratio 9.3 (10.0-20.0); Blood Urea Nitrogen < 5 mg/dL (9-23)
[2023-09-29] MEDS: ATORVASTATIN 20 MG TAB PO SCH (22:29)
[2023-09-30] VITALS (7 sets, daily range): BP systolic 129–148; BP diastolic 71–87; PULSE 61–99; RESP 16–20; TEMP 98–98.6; O2SAT 93–98
[2023-09-30] MEDS: amLODIPine BESYLATE 5 MG TAB PO SCH (09:43)
[2023-09-30 14:16] LABS: Triglycerides 100 mg/dL (< 150)
[2023-09-30 14:17] LABS: LDL Cholesterol 88 mg/dL (< 100)
[2023-09-30 14:18] LABS: Cholesterol 140 mg/dL (< 200); HDL Cholesterol 31 mg/dL (40-59)
[2023-09-30] MEDS: LACTATED RINGER'S 1,000 ML IV SCH (15:14)
[2023-10-01 01:00] VITALS: BP 130/73; PULSE 58; RESP 16; TEMP 98.4; O2SAT 95
[2023-10-01 05:00] VITALS: BP 143/87; PULSE 78; RESP 16; TEMP 97.9; O2SAT 98
[2023-10-01 08:00] VITALS: PULSE 86; RESP 18; O2SAT 96
[2023-10-01 09:00] VITALS: BP 146/83; PULSE 86; RESP 18; TEMP 98.4; O2SAT 96
[2023-10-01] MEDS ORDERED: PANT40T PO (10:21)
[2023-10-01 12:46] VITALS: BP 146/83
[2023-10-01 13:00] VITALS: BP 149/93; PULSE 86; RESP 18; TEMP 98; O2SAT 94
== END 2023-10-01 14:19 | disposition home or self-care (01) | DRG 282 ==
LOC: EDBD 00:52 → ER 00:52 → EAST 05:05 → OVERFLOW 05:05 → EAST 06:31
PROVIDERS: ADMIT Nurse Practitioner Family; ATTEND Family Medicine
DX: K85.90 Acute pancreatitis without necrosis or infection, unspecified (principal); K82.1 Hydrops of gallbladder; E87.6 Hypokalemia; I10 Essential (primary) hypertension; K27.9 Peptic ulcer, site unspecified, unspecified as acute or chronic, without hemorrhage or perforation; E78.00 Pure hypercholesterolemia, unspecified; G43.909 Migraine, unspecified, not intractable, without status migrainosus; K21.9 Gastro-esophageal reflux disease without esophagitis; K82.4 Cholesterolosis of gallbladder; Z87.442 Personal history of urinary calculi; Z82.49 Family history of ischemic heart disease and other diseases of the circulatory system; Z80.3 Family history of malignant neoplasm of breast; Z83.3 Family history of diabetes mellitus
CPT/HCPCS: 36415; 74176; 76705; 80053; 80061; 81001; 83690; 85025; 87081; 93005; 96360; G0378; J2001; J2405; J3480; J3490

== ENCOUNTER 2025-02-15 13:07 | Emergency (ER) | payer MEDICAID, OTHER ==
[~2025-02-15] VITALS: Ht 160 cm; Wt 68.2 kg
[~2025-02-15 13:07] MED LIST changes: +ASPITAB34 PO; +ATOG60TA PO; -CITA-77 PO; +HYDR-4798 PO; -HYDR1SOL36; +MULT-1228 PO; +PANT40T PO; +PROP60CA34 PO; -SUCR1TAB31 OR; +SUMA100T2 PO; -SUMA50TA2 PO
[2025-02-15] MEDS: ONDANSETRON HCL 4 MG/2 ML VIAL IV ONE (13:30)
[2025-02-15 13:56] LABS: Hematocrit 41.8 % (36.0-46.0); Hemoglobin 13.5 g/dL (12.2-16.2); Mean Corpuscular Hemoglobin 26.4 pg (28.0-32.0); Mean Corpuscular Volume 81.7 fL (80.0-100.0); Nucleated Red Blood Cells % 0.1 %
--- NOTE | 2025-02-15 13:57 | DVH ---
EXAM: XY CHEST PORTABLE Indication: CP Technique: Single frontal view of the chest was obtained Comparison: XR CHEST 1 VIEW on DOS: 02/07/25, CXRP on DOS: 03/04/22, EKG on DOS: 03/04/22, CHEST PORTAB LE on DOS: 03/04/22, CXRP on DOS: 02/28/22 FINDINGS: Lines and Tubes: None Lungs: No focal consolidation. Pleura: No effusion. No pneumothorax. Cardiomediastinal contours: Unremarkable Bones: No acute osseous abnormality. IMPRESSION: No acute cardiopulmonary disease.
[2025-02-15 14:02] LABS: Chloride 101 mmol/L (98-107); Sodium 143 mmol/L (136-145)
[2025-02-15 14:03] LABS: Anion Gap 11 (5-15); Carbon Dioxide 31 mmol/L (20-31)
[2025-02-15 14:04] LABS: Calcium 8.9 mg/dL (8.7-10.4)
[2025-02-15 14:09] LABS: BUN/Creatinine Ratio 21.6 (10.0-20.0); Blood Urea Nitrogen 11 mg/dL (9-23); Glucose 97 mg/dL (74-106)
[2025-02-15 14:11] LABS: Potassium 2.4 mmol/L (3.5-5.1)
[2025-02-15] MEDS: hydrALAZINE HCL 20 MG/ML VL IV ONE (14:50)
[2025-02-15] MEDS: POTASSIUM CHL 20 Meq TABLET PO ONE (14:50)
[2025-02-15 15:28] LABS: Urine Protein, UAD TRACE (Negative)
--- NOTE | 2025-02-15 15:33 | ED.PDOC ---
History of Present Illness HPI Comments This is a 59-year-old female who comes in with chief complaint of nausea and vomiting. The patient was seen earlier this month at [facility] with hypertension and vomiting. At that time the patient was somewhat hypertensive. Today the patient had follow up at her doctor and the patient was then sent to the emergency department's because the patient was having some nausea as well as chest tightness, dizziness and shortness for breath. The patient is also complaining of a headache. The patient has systolic blood pressure has been over 200. Upon arrival by EMS, the patient is stating that she is still having the chest tightness. Chief Complaint: General Weakness Time Seen by MD: 13:10 Reviewed Notes: Nurses Notes, Sill Worker Notes, Medications, Allergies (Allergies to sulfa) Allergies: Uncoded Allergies: SULFA ABX (Allergy, Unknown, 02/15/25) Information Source: Patient, Emergency Med Personnel Mode of Arrival: EMS Severity: Moderate Timing: Days Duration: Since onset Prehospital treatment: Accucheck (Accu-Chek was 120) Location: Chest tightness is anterior chest without radiation Associated signs and symptoms Associated nausea with shortness for breath and dizziness Past Medical History PAST MEDICAL HISTORY: AFIB, High Lipids, HTN, Kidney Stones Surgical History: , Hysterectomy Surgical History (Other): Breast augmentation RADIOGRAPHER CARDIAC CATHETERIZATION History: No Pertinent RADIOGRAPHER CARDIAC CATHETERIZATION History Family History Family History: Family hx of DM, Family hx of heart brunilda, Family hx of HTN Social History Smoker: Non-Smoker Alcohol: Denies ETOH Use Drugs: Denies Drug Use Lives In: Assisted Care Constitutional: denies: chills, diaphoresis, fatigue, fever, malaise, sweats, weakness, others EENTM: denies: blurred vision, double vision, ear bleeding, ear discharge, ear drainage, ear pain, ear ringing, eye pain, eye redness, hearing loss, mouth pain, mouth swelling, nasal discharge, nose bleeding, nose congestion, nose pain, photophobia, tearing, throat pain, throat swelling, voice changes, others Respiratory: reports: shortness of breath; denies: cough, hemoptysis, orthopnea, SOB at rest, SOB with excertion, stridor, wheezing, others Cardiovascular: reports: chest pain; denies: dizzy spells, diaphoresis, Dyspnea on exertion, edema, irregular heart beat, left arm pain, lightheadedness, palpitations, PND, syncope, others Gastrointestinal: denies: abdomen distended, abdominal pain, blood streaked bowels, constipated, diarrhea, dysphagia, difficulty swallowing, hematemesis, melena, nausea, poor appetite, poor fluid intake, rectal bleeding, rectal pain, vomiting, others Genitourinary: denies: abnormal vagina bleeding, burning, dyspareunia, dysuria, flank pain, frequency, hematuria, incontinence, pain, , vagina discharge, urgency, others Neurological: reports: dizziness, headache; denies: fainting, left sided numbness, left sided weakness, numbness, paresthesia, pre-existing deficit, right sided numbness, right sided weakness, seizure, speech problems, tingling, tremors, weakness, others Musculoskeletal: denies: back pain, gout, joint pain, joint swelling, muscle pain, muscle stiffness, neck pain, others Integumetry: denies: bruises, change in color, change in hair/nails, dryness, laceration, lesions, lumps, rash, wounds, others Allergic/Immunocompromised: denies: Difficulty Healing, Frequent Infections, Hives, Itching, others Hematologic/Lymphatic: denies: anemia, blood clots, easy bleeding, easy bruising, swollen glands, others Endocrine: denies: excessive hunger, excessive sweating, excessive thirst, excessive urination, flushing, intolerance to cold, intolerance to heat, unexplained weight gain, unexplained weight loss, others Psychiatric: denies: anxiety, bipolar disorder, depression, hopeless, panic disorder, schizophrenia, sleepless, suicidal, others Physical Exam General Appearance: Moderate Distress HEENT: Normal ENT Inspection, Pharynx Normal, TMs Normal Neck: Full Range of Motion, Non-Tender, Normal, Normal Inspection Respiratory: Chest Non-Tender, Lungs Clear, No Accessory Muscle Use, No Respiratory Distress, Normal Breath Sounds Cardiovascular: No Edema, No JVD, No Murmur, No Gallop, Normal Peripheral Pulses, Regular Rate/Rhythm Breast Exam: Deferred Gastrointestinal: No Organomegaly, Non Tender, No Pulsatile Mass, Normal Bowel Sounds, Soft Genitalia: Deferred Pelvic: Deferred Rectal: Deferred Extremities: No calf tenderness, Normal capillary refill, Normal inspection, Normal range of motion, Non-tender, No pedal edema Musculoskeletal : Apperance: Normal Neurologic: Alert, lead burner supervisor II-XII nml as Tested, No Motor Deficits, Normal Affect, Normal Mood, No Sensory Deficits Cerebellar Function: Normal Reflexes: Normal Skin: Dry, Normal Color, Warm Lymphatic: No Adenopathy Was a procedure done? Was a procedure done?: No EKG EKG : Pulse Rate (adult): 51 [place]: Normal Cardiac Rhythm: NSR Hypertrophy: LVH ST: Nonsp Differential Dx Considerations may include: ACS, NC, hypertensive crisis, generalized weakness, electrolyte imbalance X-Ray, Labs, Meds, VS Vital Signs Date Time Temp Pulse Resp B/P (MAP) Pulse Ox O2 Delivery O2 Flow Rate FiO2 02/15/25 14:50 195/109 02/15/25 14:20 Room Air* 0 21 02/15/25 14:20 98.0 91 17 195/109 (137) 98 98.0 02/15/25 14:17 58 02/15/25 13:23 97.7 58 16 222/116 99 97.7 02/15/25 13:18 57 Lab Test 02/15/25 15:00 02/15/25 14:38 02/15/25 13:41 Range/Units Urine Color Pending Urine Clarity Pending Urine pH Pending Urine Specific [place] Pending Urine Protein Pending Urine Ketones Pending Urine Blood Pending Urine Nitrite Pending Urine Bilirubin Pending Urine Urobilinogen Pending Urine Leukocyte Esterase Pending Urine RBC Pending Urine Microscopic WBC Pending Urine Squamous Epithelial Cells Pending Urine Bacteria Pending Urine Glucose Pending Troponin I High Sensitivity 38 *H 36 *H </=34 ng/L White Blood Count 7.5 4.4-10.8 10^3/uL Red Blood Count 5.12 4.0-5.20 10^6/uL Hemoglobin 13.5 12.2-16.2 g/dL Hematocrit 41.8 36.0-46.0 % Mean Corpuscular Volume 81.7 80.0-100.0 fL Mean Corpuscular Hemoglobin 26.4 L 28.0-32.0 pg Mean Corpuscular Hemoglobin Concent 32.3 32.0-36.0 g/dL Red Cell Distribution Width 16.9 H 11.8-14.3 % Platelet Count 282 140-450 10^3/uL Mean Platelet Volume 8.2 6.9-10.8 fL Neutrophils (%) (Auto) 65.4 37.0-80.0 % Lymphocytes (%) (Auto) 23.0 10.0-50.0 % Monocytes (%) (Auto) 8.7 0.0-12.0 % Eosinophils (%) (Auto) 2.1 0.0-7.0 % Basophils (%) (Auto) 0.8 0.0-2.0 % Neutrophils # (Auto) 4.9 1.6-8.6 10 ^3/uL Lymphocytes # (Auto) 1.7 0.4-5.4 10 ^3/uL Monocytes # (Auto) 0.6 0-1.3 10 ^3/uL Eosinophils # (Auto) 0.2 0-0.8 10 ^3/uL Basophils # (Auto) 0.1 0-0.2 10 ^3/uL Nucleated Red Blood Cells 0.1 % Sodium Level 143 136-145 mmol/L Potassium Level 2.4 *L 3.5-5.1 mmol/L Chloride Level 101 98-107 mmol/L Carbon Dioxide Level 31 20-31 mmol/L Anion Gap 11 5-15 Blood Urea Nitrogen 11 9-23 mg/dL Creatinine 0.51 L 0.550-1.02 mg/dL Glomerular Filtration Rate Calc 109 >90 mL/min BUN/Creatinine Ratio 21.6 H 10.0-20.0 Serum Glucose 97 74-106 mg/dL Calcium Level 8.9 8.7-10.4 mg/dL B-Type Natriuretic Peptide 105.23 0-100 pg/mL Current Medications Medications (Trade) Dose Ordered Sig/Jacky Route Start Time Stop Time Status Last Admin Aspirin 162 mg ONCE ONCE PO 02/15/25 13:30 02/15/25 13:31 DC 02/15/25 13:50 Ondansetron HCl (Zofran) 4 mg ONCE ONCE IV 02/15/25 13:30 02/15/25 13:31 DC 02/15/25 13:30 Hydralazine HCl (Apresoline Injection) 15 mg ONCE ONCE IV 02/15/25 14:15 02/15/25 14:16 DC 02/15/25 14:50 Potassium Chloride (Klor-Con Tablet) 40 meq ONCE ONCE PO 02/15/25 14:15 02/15/25 14:16 DC 02/15/25 14:50 IV Hep-Lock was established. The patient was given hydralazine 15 mg IV push The patient was given potassium 40 mEq p.o. The patient was given Zofran for the nausea and vomiting at 4 mg IV push The patient was also given aspirin 162 mg The patient's potassium came back significantly decreased at 2.4 The BNP is within normal limits The CBC is within normal limits The troponin level x2 is elevated At this time, the patient is being admitted to the hospitalist Images Reviewed?: Images reviewed and evaluated by me Time of 1ST Reevaluation: 15:32 Reevaluation 1ST: Unchanged Patient Education/Counseling: Diagnosis, Treatment, Prognosis Family Education/Counseling: No Family Present SEPSIS Sepsis Screen Date sepsis recognized/suspect: Feb 15, 2025 Time Sepsis recognized/suspect: 1419 Recent Procedure: No On Antibiotic Therapy: No Respiratory Rate >20: No Heart Rate >90: No Temp<36 C (96.8 F) or >38.3 C: No SBP <90 or MAP <65 mmHG: No New Acute Mental Status Change: No Is the patient on CPAP, BIPAP,: No Physician Orders Chest Portable (02/15/25 13:21) Heplock Iv (02/15/25 13:21) Manager Non Profit (02/15/25 13:21) Blood Pressure (02/15/25 13:21) Pulse Oximetry (02/15/25 13:21) Urinalysis (02/15/25 13:21) Electrocardigram (02/15/25 13:21) Troponin-I Hs (02/15/25 16:21) Electrocardigram (02/15/25 14:21) Electrocardigram (02/15/25 16:21) Vital Signs Date Time Temp Pulse Resp B/P (MAP) Pulse Ox O2 Delivery O2 Flow Rate FiO2 02/15/25 14:50 195/109 02/15/25 14:20 Room Air* 0 21 02/15/25 14:20 98.0 91 17 195/109 (137) 98 98.0 02/15/25 14:17 58 02/15/25 13:23 97.7 58 16 222/116 99 97.7 02/15/25 13:18 57 Laboratory Tests Test 02/15/25 13:41 White Blood Count 7.5 10^3/uL (4.4-10.8) Medications Medications Dose Ordered Sig/Jakcy Route Start Time Stop Time Status Last Admin Dose Admin Aspirin 162 mg ONCE ONCE PO 02/15/25 13:30 02/15/25 13:31 DC 02/15/25 13:50 Hydralazine HCl 15 mg ONCE ONCE IV 02/15/25 14:15 02/15/25 14:16 DC 02/15/25 14:50 Ondansetron HCl 4 mg ONCE ONCE IV 02/15/25 13:30 02/15/25 13:31 DC 02/15/25 13:30 Potassium Chloride 40 meq ONCE ONCE PO 02/15/25 14:15 02/15/25 14:16 DC 02/15/25 14:50 Departure 1 Departure Time of Disposition: 15:32 Impression: Primary Impression: Accelerated hypertension Additional Impressions: Elevated troponin Hypokalemia Acute chest pain Disposition: ADMITTED INPATIENT Admit to: [facility] Condition: Fair Critical Care Note Critical Care Time?: Yes (35 min-critical care time only) Stability Stability form required: Yes Unstable for transfer: Telemetry monitoring (Telemetry monitoring required), ED Physician Assesment (Clinical assesment) Heart Score Heart Score: Heart Score Response (Comments) Value History Moderate Suspicious 1 EKG Repolarization Disturb 1 Age 45-64 1 Risk Factors 1 or 2 risk factors 1 Troponin 1-2 x's Normal limit 1 Total 5 REGLA GUERRA MD Feb 15, 2025 15:33
--- NOTE | 2025-02-15 18:27 | ECG ---
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
--- NOTE | 2025-02-15 18:38 | ECG ---
[facility] Test Date: 2025-02-15 Test Time: 13:18:09 Pat Name: Lakesha Calhoun Department: ED Room: Gender: F Field Support Rep: tamiko : 1965 Requested By: REGLA GUERRA Order Number: [id number] Reading MD: Measurements Intervals [place] Rate: 57 P: -8 LA: 177 QRS: -38 QRSD: 89 T: 165 QT: 436 QTc: 425 Interpretive Statements Sinus rhythm LVH with secondary repolarization abnormality Inferior infarct, old Probable anterior infarct, age indeterminate Please click the below link to view image of tracing.
[2025-02-15 19:30] VITALS: PULSE 91; RESP 14
[2025-02-15] MEDS ORDERED: ONDANSETRON HCL 4 MG/2 ML VIAL IV PRN (19:45)
[2025-02-15] MEDS: hydrALAZINE HCL 20 MG/ML VL IV PRN (20:51)
--- NOTE | 2025-02-15 22:07 | DVH ---
EXAM: CT HEAD WITHOUT CONTRAST INDICATION: HYPERTENSION TECHNIQUE: CT of the head without intravenous contrast. Radiation Dose : 1. Head: CT Dose: CTDI volume is 49.79 mGy. Dose-length product is 1.71 mGy*cm The dose indicators for CT are the volume Computed Tomography (CT) Dose Index (CTDIvol) and the Dose Length Product (DLP), and are measured in units of mGy and mGy-cm, respectively. These indicators are not patient dose, but values generated from the CT scanner acquisition factors. The report includes radiation exposure data for exposures received during this examination. COMPARISON: CT BRAIN on DOS: 02/04/25 FINDINGS: There is acute subarachnoid hemorrhage contouring the right frontoparietal sulci. There is no mass ef fect. The ventricles, cisterns, and sulci appear age-appropriate. There is no evidence for acute territori al infarct. The orbits are normal. The visualized paranasal sinuses and mastoid air cells are clear. The soft t issues and osseous structures appear within normal limits. IMPRESSION: 1. Acute subarachnoid hemorrhage predominantly involving the right frontal and parietal lobe sulci. Radiation optimization: All CT scans at this facility use at least one of these dose optimization francis hniques: automated exposure control mA and/or kV adjustment per patient size (includes targeted exam s where dose is matched to clinical indication) or iterative reconstruction.
[2025-02-15] MEDS: ACETAMINOPHEN 325 MG TAB PO PRN (22:12)
[2025-02-15 23:08] VITALS: BP 169/87; PULSE 100; RESP 19; TEMP 98.7; O2SAT 97
[2025-02-15 23:21] LABS: Base Excess 5.1 mmol/L (-2.0-3.0)
--- NOTE | 2025-02-15 23:25 | PRN ---
Misceleneous Note Note Note 59 year old female with history of HTN, chronic migraines presented to the ED approximately 6 hours earlier after referral from her PCP's office for elevated blood pressure. Patient was cared for by Dr. Arce and was pending admission to hospital service for accelerated HTN and chest pain. Non-contrast CT head was ordered by hospitalist team. At 2230 the hospitalist team informed this provider of CT head finding of acute SAH necessitating transfer for neurosurgical services. Patient has remained stable during the ED observation, no neuro deficit on my evaluation. Case was discussed with ER attending Dr. Echols at [facility] who recommends starting patient on Cardene drip to maintain systolic blood pressure less than 140, administering dose of Keppra g IV, and to defer CTA to be performed at [facility] in order minimize cumulative contrast dosing. KYLEE TURCIOS MD Feb 15, 2025 23:25
[2025-02-15 23:58] LABS: INR 1.01 (0.9-1.15); Prothrombin Time 10.7 sec (9.3-11.8)
== END 2025-02-15 23:11 | disposition short-term general hospital (02) ==
LOC: EDUNIT# 13:07 → ER 13:07 → EDBD 13:07 → OVERFLOW 19:31 → UNDOADMIN 19:31 → OVERFLOW 23:11 → UNDODISIN 23:11
DX: I10 Essential (primary) hypertension (principal); E87.6 Hypokalemia; R79.89 Other specified abnormal findings of blood chemistry; R07.89 Other chest pain; E78.5 Hyperlipidemia, unspecified; I48.91 Unspecified atrial fibrillation; Z90.710 Acquired absence of both cervix and uterus; Z88.2 Allergy status to sulfonamides; Z88.1 Allergy status to other antibiotic agents; Z87.442 Personal history of urinary calculi
CPT/HCPCS: 36415; 36600; 70450; 71045; 80048; 81001; 82805; 83605; 83880; 84484; 85025; 85610; 93005; 96365; 96375; 96376; 99285; J0360; J0696; J2405; 99291; G0378